=== PATIENT | female | born 1975 | race Caucasian/White ===

== ENCOUNTER → 2018-02-28 | Outpatient (CLI) | payer OTHER ==
--- NOTE | 2018-02-28 12:13 | REP ---
Chest two views HISTORY: breast lesion Comparison: None The lungs are clear. The heart is normal in size. The pulmonary vasculature is normal in appearance. The bony structure is intact. IMPRESSION: No acute disease.
== END ==
LOC: M CLY 11:48
PROVIDERS: ATTEND Nurse Practitioner Family
DX: N64.9 Disorder of breast, unspecified (principal)

== ENCOUNTER → 2018-02-28 | Outpatient (REF) | payer OTHER ==
[2018-02-28 17:02] LABS: ALBUMIN 3.8 GM/DL (3.2-5.2); ALT/SGPT 20 U/L (12-78); BILIRUBIN,TOTAL 0.3 MG/DL (0.2-1.0); BLOOD UREA NITROGEN 16 MG/DL (7-18); CARBON DIOXIDE LEVEL 27 MEQ/L (21-32); CHLORIDE LEVEL 104 MEQ/L (98-107); CREATININE FOR GFR 0.68 MG/DL (0.55-1.30); GLOMERULAR FILTRATION RATE > 60.0 (>58); GLUCOSE, FASTING 69 MG/DL (70-100); POTASSIUM SERUM 4.1 MEQ/L (3.5-5.1); SODIUM LEVEL 140 MEQ/L (136-145); TOTAL PROTEIN 7.2 GM/DL (6.4-8.2)
[2018-02-28 17:07] LABS: BASO # 0.1 10^3/uL (0.0-0.2); BASO % 0.7 % (0.0-1.0); EOS # 0.1 10^3/uL (0.0-0.50); EOS % 1.3 % (0.0-3.0); HEMATOCRIT 40.8 % (36.0-47.0); HEMOGLOBIN 13.9 g/dl (12.0-15.5); LYMPH # 2.3 10^3/uL (1.5-4.5); LYMPH % 20.9 % (24.0-44.0); MEAN CORPUSCULAR HEMOGLOBIN 32.9 pg (27.0-33.0); MEAN CORPUSCULAR HGB CONC 34.1 g/dl (32.0-36.5); MEAN CORPUSCULAR VOLUME 96.7 fl (80.0-96.0); MONO # 0.8 10^3/uL (0.0-0.8); MONO % 7.3 % (0.0-5.0); NEUTROPHILS # 7.5 10^3/uL (1.8-7.7); NEUTROPHILS % 69.4 % (36.0-66.0); PLATELET COUNT, AUTOMATED 292 10^3/uL (150-450); RED BLOOD COUNT 4.22 10^6/uL (4.00-5.40); WHITE BLOOD COUNT 10.8 10^3/uL (4.0-10.0)
== END ==
LOC: M SFHCCLAY 11:40
PROVIDERS: ATTEND Nurse Practitioner Family
DX: N64.4 Mastodynia (principal)

== ENCOUNTER → 2018-03-04 | Outpatient (CLI) | payer OTHER ==
--- NOTE | 2018-03-04 17:24 | REP ---
Digital diagnostic bilateral mammography with CAD, 3-D tomography, and focused right breast sonography. No comparison mammography. History: Right breast pain and palpable abnormality identified at the site of pain in the lateral right breast on clinician breast exam. Mammographic findings: A skin marker is affixed to the skin at the site of the palpable lump which projects laterally at approximately 9 o'clock in the right breast. Somewhat heterogeneous fibroglandular tissue is seen bilaterally and symmetrically. No dominant density is seen mammographically at the site of the palpable lump or elsewhere in the right breast. The CC view raised a question of an oval-shaped 7 mm nodular opacity on the left breast, however, this could not be confirmed either in the MLO, true ML, or on MAG focal spot CC projection images. This area compresses away to normal stromal elements. No suspicious abnormality is noted in either breast mammographically. Sonographic findings: Focused right breast sonography is carried out in the area pain and at the site of the palpable abnormality in the right breast: The right breast shows a few subareolar ducts. Heterogeneous fibroglandular background echotexture is seen, but no cyst, mass or acoustic shadowing is observed by ultrasound. Impression: BIRADS category 1 negative breast imaging findings. Clinical follow-up is advised. Repeat screening bilateral mammography recommended in 1 year. BI-RADS/ACR category 1 mammogram. Negative. Routine annual screening mammography (for women over age 40). This mammogram was interpreted with the aid of an FDA-approved computer-aided detection system. The patient states she had a clinical breast exam in February 2018. The patient letter being requested is m#[id number] . Electronically Signed by Quinn Coley MD 03/04/2018 05:41 P
== END ==
LOC: M RAD 13:28 → EDUNIT# 14:00
PROVIDERS: ATTEND Nurse Practitioner Family
DX: N64.9 Disorder of breast, unspecified (principal)
CPT/HCPCS: 76642; 77066; G0279

== ENCOUNTER → 2018-04-18 | Outpatient (CLI) | payer OTHER ==
[2018-04-18 17:33] LABS: RUBELLA IgG QUALITATIVE IMMUNE (IMMUNE)
[2018-04-22 00:07] LABS: MUMPS VIRUS IgG ANTIBODY 15.5 AU/mL (Immune >10.9); RUBEOLA IgG ANTIBODY <25.0 AU/mL (Immune >29.9)
== END ==
LOC: M WUC 15:01
PROVIDERS: ATTEND Physician Assistant
DX: Z02.1 Encounter for pre-employment examination (principal)